=== PATIENT | male | born 2000 | race Caucasian/White ===

== ENCOUNTER → 2022-05-21 | Outpatient (CLI) | payer BC ==
[2022-05-21 21:58] LABS: Basophils # (A) 0.04 X 10*3/uL (0.00-0.10); Basophils % (A) 0.8 %; Eosinophils # (A) 0.09 X 10*3/uL (0.04-0.35); Eosinophils % (A) 1.7 %; HCT 45.7 % (39.6-50.0); HGB 14.8 g/dL (13.0-17.0); Lymphocytes # (A) 1.86 X 10*3/uL (0.90-5.00); Lymphocytes % (A) 35.4 %; MCH 27.9 pg (27.0-32.0); MCHC 32.4 g/dL (32.0-37.0); MCV 86.1 fL (80.0-97.0); Mean Platelet Volume 11.4 fL (9.5-12.2); Monocytes % (A) 11.4 %; NRBC Per 100 WBC 0 /100 WBCS (0.0-0.0); Neutrophils # (A) 2.62 X 10*3/uL (1.80-7.70); Neutrophils % (A) 49.7 %; Platelet Count 280 X 10*3/uL (140-440); RBC 5.31 X 10*6/uL (4.40-5.60); RDW 13.2 % (11.5-14.5); WBC 5.26 X 10*3/uL (4.50-10.00)
== END | disposition home or self-care (01) ==
LOC: LABPAT 10:58
PROVIDERS: ATTEND Surgery
DX: Z01.812 Encounter for preprocedural laboratory examination (principal)
CPT/HCPCS: 85025; 86850; 86900; 86901

== ENCOUNTER 2022-05-27 09:06 | Day surgery (SDC) | payer BC ==
[~2022-05-27 09:06] MED LIST: ACETAMINOPHEN TAB 500 MG TAB PO PRN; DEXAMETHASONE SOD PHOSPHATE 4 MG/ML 1 ML VIAL IV ONE; HEPARIN SODIUM,PORCINE/PF 5,000 UNIT/0.5 ML SYRINGE SQ PRN; HYDROmorphone 0.5 MG/0.5 ML SYRINGE IVP PRN; LIDOCAINE 1% (10MG/ML) FOR IV START INTRADERMA PRN; ONDANSETRON 4 MG/2 ML VIAL IVP ONE; SCOPOLAMINE 1 MG/72 HR PATCH TRANSDERM ONE
[2022-05-27] MEDS: LACTATED RINGERS 1,000 ML IV SCH ×2 (10:20→11:51)
[2022-05-27] MEDS ORDERED: MIDAZOLAM 2 MG/2 ML VIAL IVP ONE (10:26)
[2022-05-27] MEDS ORDERED: KETOROLAC 15 MG/ML 1 ML VIAL ONE (10:37)
[2022-05-27] MEDS ORDERED: ROPIVACAINE 5 MG/ML 30 ML VIAL ONE (10:37)
[2022-05-27] MEDS ORDERED: GLYCOPYRROLATE 0.2 MG/ML 2 ML VIAL ONE (10:37)
[2022-05-27] MEDS ORDERED: NEOSTIGMINE 1 MG/ML 10 ML VIAL ONE (10:37)
[2022-05-27] MEDS ORDERED: ROCURONIUM 10 MG/ML (5 ML VIAL) IV ONE (10:37)
[2022-05-27] MEDS ORDERED: fentaNYL (PF) 50 MCG/ML 2 ML AMP ONE (10:37)
[2022-05-27] MEDS ORDERED: DEXAMETHASONE SOD PHOSPHATE 10 MG/ML 1 ML VIAL ONE (10:37)
[2022-05-27] MEDS ORDERED: KETAMINE 10 MG/ML 20 ML VIAL ONE (10:37)
[2022-05-27] MEDS ORDERED: SUCCINYLCHOLINE CHLORIDE 200 MG/10 ML VIAL IV ONE (10:37)
[2022-05-27] MEDS ORDERED: SODIUM CHLORIDE 0.9% (PF) 10 ML VIAL ONE (10:37)
[2022-05-27] MEDS ORDERED: MIDAZOLAM 2 MG/2 ML VIAL ONE (10:37)
[2022-05-27] MEDS ORDERED: PROPOFOL 10 MG/ML 20 ML VIAL IV ONE (10:37)
[2022-05-27] MEDS ORDERED: BUPIVACAIN-EPI 0.25%-1:200,000 30 ML VIAL SQ ONE ×2 (10:38→11:01)
--- NOTE | 2022-05-27 11:38 | P.OP ---
Date of Procedure: 05/27/22 Preoperative Diagnosis: Left inguinal hernia Postoperative Diagnosis: Left inguinal hernia Cord lipoma Procedure(s) Performed: Transverse is positive block Laparoscopic robotic system repair of left inguinal hernia Excision of left cord lipoma Anesthesia: COLLINS Surgeon: Sahil Aguirre Estimated Blood Loss (ml): 5 Pathology: other (Cord lipoma) Condition: stable Disposition: PACU Description of Procedure: The patient's placed on the operating table in the supine position. The patient received general anesthesia. The patient's abdomen was prepped and draped in usual sterile fashion. The skin was anesthetized 1% local Xylocaine at the incision sites. Using an 11 blade a skin incision was made at the umbilicus. The fascia was grasped with a [place] and then the peritoneal cavity was entered with the Veress needle. Position of the Veress needle was confirmed with a positive drop test. After adequate insufflation a 5 mm trocar was placed into the peritoneal cavity. The Laparoscope was placed the peritoneal cavity. And a robotic 8 mm trocar was placed in the right lateral position and then another 8 mm robotic trochars placed in the left lateral position. The original 5 mm trocar was exchanged for a 12 mm trocar. A four-quadrant transverse of the hospital block was performed using 1% local Xylocaine. The patient was placed in reverse Trendelenburg and then the patient was docked to the robot. Next the peritoneum over top of the hernia was incised and then using blunt and sharp dissection and electrocautery the hernia sac was dissected free from the floor of the inguinal canal. The cord lipoma was dissected free sent to pathology. The hernia sac was completely reduced into the peritoneal cavity. And then using the [employer] mesh the hernia was repaired. The peritoneum was then sutured with 20V lock suture. The patient was then undocked the robot. The needle was withdrawn from the peritoneal cavity. The umbilical trocar site was closed with 0 Ethibond suture. The skin was closed interrupted 3-0 Monocryl suture. Dermabond dressing was applied. Patient was sent to recovery in stable condition.
[2022-05-27 11:41] VITALS: TEMP 97.5
[2022-05-27 14:21] VITALS: RESP 16
[2022-05-27] MEDS ORDERED: LACTATED RINGERS 1,000 ML IV ONE (15:00)
[2022-05-27] MEDS ORDERED: TAMSULOSIN 0.4 MG CAP.ER.24H PO ONE (15:10)
[2022-05-27 15:27] VITALS: BP 117/72; PULSE 62
== END 2022-05-27 15:58 | disposition home or self-care (01) ==
LOC: OR 09:06
PROVIDERS: ATTEND Surgery
DX: K40.90 Unilateral inguinal hernia, without obstruction or gangrene, not specified as recurrent (principal); Z79.899 Other long term (current) drug therapy
CPT/HCPCS: 64999; 76942; 86900; 86901; 86850; 49650; C1781; J2250; J0330; J1100 ×2; J2710; J0690; J2405; J3010; J2795; J1885; J2704; J1170; J1644; 88304